=== PATIENT | female | born 1975 | race Caucasian/White ===

== ENCOUNTER 2017-09-06 01:00 | Emergency (ER) | payer MEDICAID ==
[~2017-09-06] VITALS: Ht 167.6 cm; Wt 97.0 kg
[~2017-09-06 01:00] MED LIST: LISI-604 PO
[2017-09-06] MEDS ORDERED: AMLO2.5T2 PO (01:18)
[2017-09-06] MEDS ORDERED: DULO60CA45 PO (01:19)
[2017-09-06] MEDS ORDERED: normal saline 1000ML IV soln IVB ONE (01:20)
[2017-09-06] MEDS ORDERED: ondansetron/PF 4mg/2ml inj IV ONE (01:20)
[2017-09-06] MEDS ORDERED: HYDROcodone/acetaminophen 10/325mg tab PO ONE (01:25)
[2017-09-06] MEDS: morphine 4 MG/ML inj SYRINge IV PRN ×2 (01:36→02:47)
[2017-09-06 01:53] LABS: BASOPHILS % (AUTO) 0.2 % (0-1); EOSINOPHILS # (AUTO) 0.3 X10'3 (0-0.9); EOSINOPHILS % (AUTO) 2.9 % (0-6); HEMATOCRIT 37.8 % (35.0-45.0); HEMOGLOBIN 12.2 g/dl (12.0-16.0); LYMPHOCYTES # (AUTO) 1.3 X10'3 (1.1-4.8); LYMPHOCYTES % (AUTO) 10.9 % (21-51); MEAN CORPUSCULAR HGB CONC 32.2 % (33.0-36.5); MEAN CORPUSCULAR VOLUME 74.4 FL (78-98); MEAN PLATELET VOLUME 7.8 FL (7.4-10.4); MONOCYTES # (AUTO) 0.8 X10'3 (0-0.9); NEUTROPHILS # (AUTO) 9.2 X10'3 (1.8-7.7); PLATELET COUNT 482 X10'3 (140-440); RED BLOOD COUNT 5.08 X10'6 (4.20-5.60); RED CELL DISTRIBUTION WIDTH 20.6 % (11.5-14.5); WHITE BLOOD COUNT 11.7 X10'3 (4.5-11.0)
[2017-09-06 02:08] LABS: ALANINE AMINOTRANSFERASE 14 U/L (12-78); ALBUMIN 3.8 G/DL (3.4-5.0); ALBUMIN/GLOBULIN RATIO 0.9 (1.1-1.5); ALKALINE PHOSPHATASE 83 IU/L (46-116); ANION GAP 5 (8-16); ASPARTATE AMINO TRANSFERASE 19 U/L (10-37); BILIRUBIN,TOTAL 0.4 MG/DL (0.1-1.0); BLOOD UREA NITROGEN 9 MG/DL (7-18); BUN/CREATININE RATIO 11.3 (6.6-38.0); CALCIUM 8.9 MG/DL (8.5-10.1); CHLORIDE 105 MMOL/L (99-107); GLUCOSE 138 MG/DL (70-104); LIPASE 581 U/L (73-393); POTASSIUM 3.3 MMOL/L (3.5-5.1); SODIUM 136 MMOL/L (135-145); eGFR 78 ML/MIN
[2017-09-06] MEDS ORDERED: ONDA8TAB6 PO (02:36)
[2017-09-06] MEDS ORDERED: magnesium citrate 296ml oral solution PO ONE (05:10)
[2017-09-06 05:20] VITALS: BP 113/80
[2017-09-06 05:27] LABS: CLARITY,URINE CLEAR (Clear); COLOR,URINE YELLOW (Yellow); GLUCOSE, URINE NEGATIVE (Neg); KETONES,URINE TRACE mg/dl (Neg); LEUKOCYTE ESTERASE ,URINE NEGATIVE (Neg); NITRITES, URINE NEGATIVE (Neg); OCCULT BLOOD,URINE NEGATIVE (Neg); PROTEIN,URINE TRACE mg/dl (Neg); UROBILINOGEN,URINE 0.2 E.U/dL (0.2-1.0)
[2017-09-06 05:29] LABS: URINE HCG NEGATIVE (NEG)
[2017-09-06 05:34] LABS: UA COLLECTION TYPE CLN CATCH MIDSTREAM
[2017-09-06 05:36] LABS: BACTERIA,URINE 1+ /HPF (Neg); MUCUS STRANDS MODERATE /LPF (Neg); RBC,URINE 0-2 /HPF (0-2); SQUAMOUS EPITHELIAL CELL,UR MANY /LPF (FEW); WBC,URINE 0-4 /HPF (0-4)
[2017-09-06] MEDS ORDERED: LEVO75TA PO (15:41)
[2017-09-06] MEDS ORDERED: FERR325T32 PO (15:41)
== END 2017-09-06 05:32 | disposition home or self-care (01) ==
LOC: ER 01:00
DX: R10.33 Periumbilical pain (principal); K59.00 Constipation, unspecified; R11.2 Nausea with vomiting, unspecified; I10 Essential (primary) hypertension; M79.7 Fibromyalgia; G43.909 Migraine, unspecified, not intractable, without status migrainosus; Z90.49 Acquired absence of other specified parts of digestive tract; Z79.899 Other long term (current) drug therapy
CPT/HCPCS: 36415; 74018; 76700; 76830; 76856; 80053; 81001; 81025; 83690; 85025; 96361; 96374; 96375; 96376; 99285; J2270; J2405; J7030

== ENCOUNTER 2017-09-06 11:23 | Inpatient (IN) | payer MEDICAID ==
[~2017-09-06] VITALS: Ht 167.6 cm; Wt 98.8 kg
[~2017-09-06 11:23] MED LIST changes: +AMLO2.5T2 PO; +DULO60CA45 PO; +ONDA8TAB6 PO
[2017-09-06 12:08] LABS: BASOPHILS % (AUTO) 0.2 % (0-1); EOSINOPHILS # (AUTO) 0.1 X10'3 (0-0.9); EOSINOPHILS % (AUTO) 0.8 % (0-6); HEMATOCRIT 36.8 % (35.0-45.0); LYMPHOCYTES # (AUTO) 0.7 X10'3 (1.1-4.8); LYMPHOCYTES % (AUTO) 6.2 % (21-51); MEAN CORPUSCULAR HEMOGLOBIN 24.2 PG (27.0-31.0); MEAN CORPUSCULAR HGB CONC 32.7 % (33.0-36.5); MEAN PLATELET VOLUME 7.5 FL (7.4-10.4); MONOCYTES # (AUTO) 0.8 X10'3 (0-0.9); MONOCYTES % (AUTO) 6.6 % (2-12); NEUTROPHILS # (AUTO) 10.4 X10'3 (1.8-7.7); NEUTROPHILS % (AUTO) 86.2 % (42-75); PLATELET COUNT 392 X10'3 (140-440); RED BLOOD COUNT 4.97 X10'6 (4.20-5.60); RED CELL DISTRIBUTION WIDTH 20.8 % (11.5-14.5)
[2017-09-06 12:15] LABS: PROTHROMBIN TIME 10.1 SECONDS (9.0-12.0)
[2017-09-06 12:22] LABS: ALANINE AMINOTRANSFERASE 32 U/L (12-78); ALBUMIN 3.7 G/DL (3.4-5.0); ALBUMIN/GLOBULIN RATIO 0.9 (1.1-1.5); ALKALINE PHOSPHATASE 85 IU/L (46-116); ASPARTATE AMINO TRANSFERASE 38 U/L (10-37); BILIRUBIN,TOTAL 0.5 MG/DL (0.1-1.0); BLOOD UREA NITROGEN 11 MG/DL (7-18); BUN/CREATININE RATIO 14.7 (6.6-38.0); CHLORIDE 107 MMOL/L (99-107); CREATININE 0.75 MG/DL (0.40-0.90); GLUCOSE 132 MG/DL (70-104); POTASSIUM 3.5 MMOL/L (3.5-5.1); TOTAL CARBON DIOXIDE 27.7 MMOL/L (24-32); TOTAL PROTEIN 7.9 G/DL (6.4-8.2); eGFR 84 ML/MIN
[2017-09-06] MEDS ORDERED: ondansetron/PF 4mg/2ml inj IV ONE ×2 (12:25→14:40)
[2017-09-06] MEDS ORDERED: normal saline 1000ML IV soln IVB ONE (12:25)
[2017-09-06] MEDS ORDERED: morphine 2 MG/ML inj. syringe IV ONE (12:25)
[2017-09-06 12:27] LABS: ANION GAP 7 (8-16); SODIUM 140 MMOL/L (135-145)
[2017-09-06] MEDS ORDERED: morphine 4 MG/ML inj SYRINge IV ONE ×2 (12:35→14:40)
[2017-09-06] MEDS ORDERED: iohexol 300mg/ml 100ml inj. ONE (12:45)
[2017-09-06 13:57] LABS: CLARITY,URINE CLOUDY (Clear); COLOR,URINE YELLOW (Yellow); GLUCOSE, URINE NEGATIVE (Neg); KETONES,URINE TRACE mg/dl (Neg); LEUKOCYTE ESTERASE ,URINE NEGATIVE (Neg); NITRITES, URINE NEGATIVE (Neg); OCCULT BLOOD,URINE NEGATIVE (Neg); PROTEIN,URINE TRACE mg/dl (Neg); UROBILINOGEN,URINE 0.2 E.U/dL (0.2-1.0)
[2017-09-06 14:08] LABS: UA COLLECTION TYPE CLN CATCH MIDSTREAM
[2017-09-06 14:11] LABS: MUCUS STRANDS MANY /LPF (Neg); SQUAMOUS EPITHELIAL CELL,UR MANY /LPF (FEW); TRANSITIONAL EPI CELLS,URINE FEW /HPF
[2017-09-06 14:12] LABS: BACTERIA,URINE 2+ /HPF (Neg); HYALINE CASTS 0-3 /LPF (NEGATIVE); RBC,URINE 0-2 /HPF (0-2); WBC,URINE 0-4 /HPF (0-4)
[2017-09-06 14:17] LABS: AMORPHOUS URATES 1+
[2017-09-06] MEDS ORDERED: acetaminophen 325mg tablet PO PRN (15:35)
[2017-09-06] MEDS ORDERED: magnesium hydroxide 30ml (MOM) UD suspension PO PRN (15:35)
[2017-09-06] MEDS ORDERED: PEG 3350/Na sulf,bicarb,Cl/KCl oral sol 4 liter bottle PO ONE (15:35)
[2017-09-06] MEDS ORDERED: mag hydrox/Alum hydrox/simeth 30ml oral suspension PO PRN (15:35)
[2017-09-06] MEDS ORDERED: diphenhydrAMINE 25mg capsule PO PRN (15:35)
[2017-09-06] MEDS ORDERED: metoclopramide 5 mg/ml inj IV PRN (15:35)
[2017-09-06] MEDS ORDERED: LEVO75TA PO (15:41)
[2017-09-06] MEDS ORDERED: FERR325T32 PO (15:41)
[2017-09-06] MEDS ORDERED: hydrALAZINE 20mg/ml inj. IV PRN (15:45)
[2017-09-06] MEDS: normal saline 1000ml 1,000 ML IV SCH ×2 (16:37→23:02)
[2017-09-06] MEDS: ketorolac tromethamine 15mg/ml inj. IV PRN (16:37)
[2017-09-06] MEDS: amLODIPine 5mg tablet PO SCH (16:38)
[2017-09-06] MEDS ORDERED: temazepam 15mg capsule PO PRN (21:00)
[2017-09-06] MEDS ORDERED: pantoprazole 40 MG vial IV ONE (21:50)
[2017-09-06] MEDS: ondansetron/PF 4mg/2ml inj IV PRN (21:56)
[2017-09-06 22:05] VITALS: BP 154/95
[2017-09-06 22:14] LABS: GASTRIC OCCULT BLOOD POSITIVE (Neg)
[2017-09-06] MEDS: morphine 4 MG/ML inj SYRINge IV PRN (22:32)
[2017-09-07] VITALS (20 sets, daily range): BP systolic 125–165; BP diastolic 73–98
[2017-09-07] MEDS: ketorolac tromethamine 15mg/ml inj. IV PRN ×3 (01:10→20:54)
[2017-09-07] MEDS: normal saline 1000ml 1,000 ML IV SCH (04:56)
[2017-09-07 05:17] LABS: BASOPHILS % (AUTO) 0.1 % (0-1); EOSINOPHILS % (AUTO) 0 % (0-6); HEMATOCRIT 34.2 % (35.0-45.0); HEMOGLOBIN 11.1 g/dl (12.0-16.0); LYMPHOCYTES # (AUTO) 0.8 X10'3 (1.1-4.8); LYMPHOCYTES % (AUTO) 7.2 % (21-51); MEAN CORPUSCULAR HEMOGLOBIN 24.2 PG (27.0-31.0); MEAN CORPUSCULAR HGB CONC 32.4 % (33.0-36.5); MEAN CORPUSCULAR VOLUME 74.8 FL (78-98); MEAN PLATELET VOLUME 7.8 FL (7.4-10.4); MONOCYTES # (AUTO) 0.8 X10'3 (0-0.9); MONOCYTES % (AUTO) 7.8 % (2-12); NEUTROPHILS # (AUTO) 9.2 X10'3 (1.8-7.7); NEUTROPHILS % (AUTO) 84.9 % (42-75); PLATELET COUNT 395 X10'3 (140-440); RED BLOOD COUNT 4.57 X10'6 (4.20-5.60); RED CELL DISTRIBUTION WIDTH 21.2 % (11.5-14.5); WHITE BLOOD COUNT 10.8 X10'3 (4.5-11.0)
[2017-09-07 05:57] LABS: IRON 22 UG/DL (49-151)
[2017-09-07 06:08] LABS: % IRON SATURATION 8 % (11-46); TOTAL IRON BINDING CAPACITY 270 UG/DL (259-388)
[2017-09-07 06:11] LABS: ALBUMIN 3.3 G/DL (3.4-5.0); ANION GAP 7 (8-16); BLOOD UREA NITROGEN 17 MG/DL (7-18); BUN/CREATININE RATIO 17.7 (6.6-38.0); CHLORIDE 105 MMOL/L (99-107); CREATININE 0.96 MG/DL (0.40-0.90); FERRITIN 12 NG/ML (8-252); GLUCOSE 134 MG/DL (70-104); POTASSIUM 3.7 MMOL/L (3.5-5.1); SODIUM 142 MMOL/L (135-145); eGFR 63 ML/MIN
[2017-09-07] MEDS: morphine 4 MG/ML inj SYRINge IV PRN ×3 (06:33→23:13)
[2017-09-07] MEDS: duloxetine 30mg CAPSULE.DR PO SCH (07:32)
[2017-09-07] MEDS: amLODIPine 5mg tablet PO SCH (07:32)
[2017-09-07] MEDS ORDERED: levoTHYROXINE 75mcg tablet PO SCH (08:00)
[2017-09-07] MEDS ORDERED: LIDOcaine 2% 10ml TOPICAL JELLY (Urojet) MM ONE (08:55)
[2017-09-07] MEDS: pantoprazole 40 MG vial IV SCH ×2 (11:18→20:04)
[2017-09-07] MEDS: potassium Cl 20mEq in NS 1,000 ML IV SCH ×2 (11:18→21:21)
[2017-09-07] MEDS ORDERED: diatrozoate meglu/diatrozoate sod (37% iodine) 120ML oral solution ONE ×2 (11:48→12:01)
[2017-09-07 12:04] LABS: OCCULT BLOOD STOOL POSITIVE (Neg)
[2017-09-07] MEDS ORDERED: ceFOXitin 2 GM ADDvantage bag 100 ML IV ONE (14:10)
[2017-09-07] MEDS ORDERED: ondansetron/PF 4mg/2ml inj IV PRN (14:55)
[2017-09-07] MEDS ORDERED: proCHLORperazine 10 MG/2 ml inj IV PRN (14:55)
[2017-09-07] MEDS ORDERED: meperidine/PF 25mg/ml syringe IV PRN ×3 (14:55)
[2017-09-07] MEDS ORDERED: morphine 4 MG/ML inj SYRINge IV PRN ×2 (14:55)
[2017-09-07] MEDS ORDERED: ringers solution, lacted 1,000 ML IV SCH (14:55)
[2017-09-07] MEDS ORDERED: fentaNYL /PF 50mcg/ml 5ml ampule ONE (15:03)
[2017-09-07] MEDS ORDERED: midazolam 2 mg/2 ml injection ONE (15:03)
[2017-09-07] MEDS ORDERED: sevoflurane 250ml liquid IH ONE (15:07)
[2017-09-07] MEDS ORDERED: dexamethasone sod phosphate 10mg/ml inj ONE (15:07)
[2017-09-07] MEDS ORDERED: ondansetron/PF 4mg/2ml inj ONE (16:14)
[2017-09-07] MEDS ORDERED: rocuronium 10mg/ml inj IV ONE (16:14)
[2017-09-07] MEDS ORDERED: LIDOcaine 2% (20mg/ml) 5ml vial ONE (16:14)
[2017-09-07] MEDS ORDERED: propofol inj 20 ML IV ONE (16:14)
[2017-09-07] MEDS ORDERED: neostigmine methylsulfate 1 MG/ML 10ml vial ONE (16:14)
[2017-09-07] MEDS ORDERED: glycopyrrolate 0.2mg/ml inj ONE (16:14)
[2017-09-07] MEDS ORDERED: meperidine/PF 50mg/ml syringe ONE (16:22)
[2017-09-08] MEDS: morphine 4 MG/ML inj SYRINge IV PRN ×7 (02:22→20:19)
[2017-09-08] MEDS: ondansetron/PF 4mg/2ml inj IV PRN (02:27)
[2017-09-08 04:15] VITALS: BP 156/85
[2017-09-08 05:30] LABS: BASOPHILS % (AUTO) 0.1 % (0-1); EOSINOPHILS % (AUTO) 0 % (0-6); HEMATOCRIT 30.9 % (35.0-45.0); HEMOGLOBIN 9.9 g/dl (12.0-16.0); LYMPHOCYTES # (AUTO) 0.5 X10'3 (1.1-4.8); LYMPHOCYTES % (AUTO) 8.7 % (21-51); MEAN CORPUSCULAR HEMOGLOBIN 23.9 PG (27.0-31.0); MEAN CORPUSCULAR VOLUME 74.6 FL (78-98); MONOCYTES # (AUTO) 0.5 X10'3 (0-0.9); MONOCYTES % (AUTO) 9.5 % (2-12); NEUTROPHILS # (AUTO) 4.3 X10'3 (1.8-7.7); NEUTROPHILS % (AUTO) 81.7 % (42-75); PLATELET COUNT 310 X10'3 (140-440); RED BLOOD COUNT 4.14 X10'6 (4.20-5.60); RED CELL DISTRIBUTION WIDTH 21.8 % (11.5-14.5); WHITE BLOOD COUNT 5.2 X10'3 (4.5-11.0)
[2017-09-08 05:58] LABS: ALBUMIN 2.7 G/DL (3.4-5.0); ANION GAP 7 (8-16); BLOOD UREA NITROGEN 13 MG/DL (7-18); BUN/CREATININE RATIO 16.9 (6.6-38.0); CALCIUM 7.6 MG/DL (8.5-10.1); CHLORIDE 106 MMOL/L (99-107); CREATININE 0.77 MG/DL (0.40-0.90); GLUCOSE 116 MG/DL (70-104); POTASSIUM 3.7 MMOL/L (3.5-5.1); SODIUM 143 MMOL/L (135-145); TOTAL CARBON DIOXIDE 29.7 MMOL/L (24-32); eGFR 82 ML/MIN
[2017-09-08 07:00] VITALS: BP 109/67
[2017-09-08] MEDS: ketorolac tromethamine 15mg/ml inj. IV PRN ×3 (07:30→21:29)
[2017-09-08] MEDS: pantoprazole 40 MG vial IV SCH ×2 (07:30→21:35)
[2017-09-08] MEDS ORDERED: levoTHYROXINE sod inj. 100mcg/5 ml vial IV SCH (08:00)
[2017-09-08] MEDS: amLODIPine 5mg tablet PO SCH (08:00)
[2017-09-08] MEDS: duloxetine 30mg CAPSULE.DR PO SCH (08:00)
[2017-09-08] MEDS: potassium Cl 20mEq in NS 1,000 ML IV SCH ×2 (08:31→17:18)
[2017-09-08 12:00] VITALS: BP 118/62
[2017-09-08 19:00] VITALS: BP 128/78
[2017-09-08] MEDS: acetaminophen 325mg tablet PO PRN (21:17)
[2017-09-08] MEDS ORDERED: amLODIPine 5mg tablet PO ONE (21:30)
[2017-09-08] MEDS ORDERED: duloxetine 30mg CAPSULE.DR PO ONE (21:30)
[2017-09-08] MEDS: enoxaparin 40mg/0.4ml syringe SUBCUT SCH (21:35)
[2017-09-09] VITALS: BP 134/86
[2017-09-09] MEDS: potassium Cl 20mEq in NS 1,000 ML IV SCH (03:29)
[2017-09-09] MEDS: morphine 4 MG/ML inj SYRINge IV PRN ×4 (03:56→23:30)
[2017-09-09 05:41] LABS: BASOPHILS % (AUTO) 0.1 % (0-1); EOSINOPHILS # (AUTO) 0.3 X10'3 (0-0.9); EOSINOPHILS % (AUTO) 6.3 % (0-6); HEMATOCRIT 25.9 % (35.0-45.0); HEMOGLOBIN 8.5 g/dl (12.0-16.0); LYMPHOCYTES # (AUTO) 0.5 X10'3 (1.1-4.8); LYMPHOCYTES % (AUTO) 11.3 % (21-51); MEAN CORPUSCULAR HEMOGLOBIN 24.1 PG (27.0-31.0); MEAN CORPUSCULAR HGB CONC 32.9 % (33.0-36.5); MEAN CORPUSCULAR VOLUME 73.2 FL (78-98); MEAN PLATELET VOLUME 7.8 FL (7.4-10.4); MONOCYTES # (AUTO) 0.6 X10'3 (0-0.9); MONOCYTES % (AUTO) 13.9 % (2-12); NEUTROPHILS # (AUTO) 3.1 X10'3 (1.8-7.7); NEUTROPHILS % (AUTO) 68.4 % (42-75); PLATELET COUNT 239 X10'3 (140-440); RED BLOOD COUNT 3.54 X10'6 (4.20-5.60); RED CELL DISTRIBUTION WIDTH 21.2 % (11.5-14.5); WHITE BLOOD COUNT 4.6 X10'3 (4.5-11.0)
[2017-09-09] MEDS: ketorolac tromethamine 15mg/ml inj. IV PRN ×3 (05:43→20:42)
[2017-09-09 05:57] LABS: ALBUMIN 2.4 G/DL (3.4-5.0); ANION GAP 7 (8-16); BLOOD UREA NITROGEN 13 MG/DL (7-18); BUN/CREATININE RATIO 16.7 (6.6-38.0); CALCIUM 7.3 MG/DL (8.5-10.1); CHLORIDE 105 MMOL/L (99-107); CREATININE 0.78 MG/DL (0.40-0.90); GLUCOSE 100 MG/DL (70-104); POTASSIUM 3.7 MMOL/L (3.5-5.1); SODIUM 138 MMOL/L (135-145); TOTAL CARBON DIOXIDE 26.4 MMOL/L (24-32); eGFR 81 ML/MIN
[2017-09-09 07:00] VITALS: BP 134/76
[2017-09-09] MEDS: levoTHYROXINE 100mcg tablet PO SCH (09:56)
[2017-09-09] MEDS: pantoprazole 40 MG vial IV SCH ×2 (09:56→20:33)
[2017-09-09] MEDS: enoxaparin 40mg/0.4ml syringe SUBCUT SCH (09:56)
[2017-09-09 11:00] VITALS: BP 129/74
[2017-09-09] MEDS: ondansetron/PF 4mg/2ml inj IV PRN (12:50)
[2017-09-09] MEDS: normal saline 1000ml 1,000 ML IV SCH (18:06)
[2017-09-09 18:30] VITALS: BP 149/91
[2017-09-09] MEDS: duloxetine 30mg CAPSULE.DR PO SCH (20:33)
[2017-09-09] MEDS: amLODIPine 5mg tablet PO SCH (20:33)
[2017-09-10] VITALS: BP 143/80
[2017-09-10] MEDS: normal saline 1000ml 1,000 ML IV SCH (00:24)
[2017-09-10 05:30] LABS: BASOPHILS % (AUTO) 0 % (0-1); EOSINOPHILS # (AUTO) 0.2 X10'3 (0-0.9); EOSINOPHILS % (AUTO) 4.5 % (0-6); HEMATOCRIT 27.5 % (35.0-45.0); HEMOGLOBIN 8.7 g/dl (12.0-16.0); LYMPHOCYTES # (AUTO) 0.5 X10'3 (1.1-4.8); LYMPHOCYTES % (AUTO) 9.8 % (21-51); MEAN CORPUSCULAR HEMOGLOBIN 23.3 PG (27.0-31.0); MEAN CORPUSCULAR HGB CONC 31.5 % (33.0-36.5); MEAN CORPUSCULAR VOLUME 73.8 FL (78-98); MEAN PLATELET VOLUME 8.1 FL (7.4-10.4); MONOCYTES % (AUTO) 18.4 % (2-12); NEUTROPHILS # (AUTO) 3.7 X10'3 (1.8-7.7); NEUTROPHILS % (AUTO) 67.3 % (42-75); PLATELET COUNT 247 X10'3 (140-440); RED BLOOD COUNT 3.73 X10'6 (4.20-5.60); RED CELL DISTRIBUTION WIDTH 20.1 % (11.5-14.5); WHITE BLOOD COUNT 5.4 X10'3 (4.5-11.0)
[2017-09-10 05:55] LABS: ALBUMIN 2.3 G/DL (3.4-5.0); ANION GAP 7 (8-16); BLOOD UREA NITROGEN 9 MG/DL (7-18); BUN/CREATININE RATIO 9.9 (6.6-38.0); CALCIUM 8.4 MG/DL (8.5-10.1); CHLORIDE 104 MMOL/L (99-107); CREATININE 0.91 MG/DL (0.40-0.90); GLUCOSE 101 MG/DL (70-104); POTASSIUM 3.3 MMOL/L (3.5-5.1); SODIUM 138 MMOL/L (135-145); TOTAL CARBON DIOXIDE 27.4 MMOL/L (24-32); eGFR 67 ML/MIN
[2017-09-10] MEDS: levoTHYROXINE 100mcg tablet PO SCH (06:42)
[2017-09-10] MEDS: acetaminophen 325mg tablet PO PRN (06:42)
[2017-09-10 08:07] VITALS: BP 133/56
[2017-09-10] MEDS: enoxaparin 40mg/0.4ml syringe SUBCUT SCH (08:49)
[2017-09-10] MEDS: pantoprazole 40 MG vial IV SCH ×2 (08:49→19:53)
[2017-09-10] MEDS: metroNIDAZOLE-Flagyl 500mg/NS 100 ML IV SCH ×3 (08:58→23:36)
[2017-09-10] MEDS: morphine 4 MG/ML inj SYRINge IV PRN ×3 (09:31→23:37)
[2017-09-10] MEDS: levoFLOXACIN-Levaquin 500mg/D5 100 ML IV SCH (10:23)
[2017-09-10 11:00] VITALS: BP_SYST 118; BP_SYST 124; BP_DIAS 63; BP_DIAS 78
[2017-09-10] MEDS: ondansetron/PF 4mg/2ml inj IV PRN ×2 (11:39→20:01)
[2017-09-10 12:19] LABS: CLARITY,URINE CLEAR (Clear); COLOR,URINE YELLOW (Yellow); GLUCOSE, URINE NEGATIVE (Neg); KETONES,URINE NEGATIVE (Neg); LEUKOCYTE ESTERASE ,URINE NEGATIVE (Neg); NITRITES, URINE NEGATIVE (Neg); OCCULT BLOOD,URINE SMALL (Neg); PROTEIN,URINE NEGATIVE (Neg)
[2017-09-10 12:22] LABS: UA COLLECTION TYPE NON-SPECIFIED
[2017-09-10 12:27] LABS: BACTERIA,URINE 3+ /HPF (Neg); RBC,URINE 0-2 /HPF (0-2); SQUAMOUS EPITHELIAL CELL,UR MANY /LPF (FEW); WBC,URINE 0-4 /HPF (0-4)
[2017-09-10] MEDS ORDERED: potassium Cl 40MEQ/NS 500ml 500 ML IV PRN ×2 (12:50)
[2017-09-10] MEDS ORDERED: magnesium Cl slow-release 64mg tablet PO PRN (12:50)
[2017-09-10] MEDS ORDERED: magnesium/D5W IVPB 100 ML IV PRN (12:50)
[2017-09-10] MEDS ORDERED: potassium Cl 20 mEq SR tablet PO PRN (12:50)
[2017-09-10] MEDS ORDERED: magnesium 4gm in 100ml NS 100 ML IV PRN (12:50)
[2017-09-10 19:00] VITALS: BP 131/78
[2017-09-10] MEDS: lactobacillus rhamnosus 10,000 MMU CELLS/CAPSULE PO SCH (19:55)
[2017-09-10] MEDS: potassium Cl 20 mEq SR tablet PO PRN (19:55)
[2017-09-10] MEDS: amLODIPine 5mg tablet PO SCH (20:47)
[2017-09-10] MEDS: duloxetine 30mg CAPSULE.DR PO SCH (20:47)
[2017-09-11] VITALS: BP 115/51
[2017-09-11] MEDS: potassium Cl 20 mEq SR tablet PO PRN ×2 (00:21→12:39)
[2017-09-11 04:00] VITALS: BP 128/71
[2017-09-11 05:25] LABS: BASOPHILS % (AUTO) 0.3 % (0-1); EOSINOPHILS # (AUTO) 0.4 X10'3 (0-0.9); EOSINOPHILS % (AUTO) 5.4 % (0-6); HEMATOCRIT 26.3 % (35.0-45.0); HEMOGLOBIN 8.5 g/dl (12.0-16.0); LYMPHOCYTES # (AUTO) 0.8 X10'3 (1.1-4.8); MEAN CORPUSCULAR HGB CONC 32.3 % (33.0-36.5); MEAN CORPUSCULAR VOLUME 74.3 FL (78-98); MEAN PLATELET VOLUME 7.5 FL (7.4-10.4); MONOCYTES # (AUTO) 0.9 X10'3 (0-0.9); MONOCYTES % (AUTO) 11.8 % (2-12); NEUTROPHILS # (AUTO) 5.2 X10'3 (1.8-7.7); NEUTROPHILS % (AUTO) 71.5 % (42-75); PLATELET COUNT 245 X10'3 (140-440); RED BLOOD COUNT 3.54 X10'6 (4.20-5.60); RED CELL DISTRIBUTION WIDTH 20.9 % (11.5-14.5); WHITE BLOOD COUNT 7.2 X10'3 (4.5-11.0)
[2017-09-11 05:35] LABS: ALBUMIN 2.2 G/DL (3.4-5.0); ANION GAP 8 (8-16); BLOOD UREA NITROGEN 6 MG/DL (7-18); BUN/CREATININE RATIO 7.2 (6.6-38.0); CALCIUM 8.3 MG/DL (8.5-10.1); CHLORIDE 104 MMOL/L (99-107); CREATININE 0.83 MG/DL (0.40-0.90); GLUCOSE 121 MG/DL (70-104); MAGNESIUM 1.5 MG/DL (1.5-2.4); POTASSIUM 3.1 MMOL/L (3.5-5.1); SODIUM 141 MMOL/L (135-145); TOTAL CARBON DIOXIDE 28.8 MMOL/L (24-32); eGFR 75 ML/MIN
[2017-09-11 07:00] VITALS: BP 111/56
[2017-09-11] MEDS: levoTHYROXINE 100mcg tablet PO SCH (09:09)
[2017-09-11] MEDS: pantoprazole 40 MG vial IV SCH (09:09)
[2017-09-11] MEDS: levoFLOXACIN-Levaquin 500mg/D5 100 ML IV SCH (09:09)
[2017-09-11] MEDS: enoxaparin 40mg/0.4ml syringe SUBCUT SCH (09:10)
[2017-09-11] MEDS: lactobacillus rhamnosus 10,000 MMU CELLS/CAPSULE PO SCH (09:10)
[2017-09-11 11:00] VITALS: BP 151/89
[2017-09-11] MEDS: metroNIDAZOLE-Flagyl 500mg/NS 100 ML IV SCH (11:42)
[2017-09-11] MEDS ORDERED: HYDROcodone/acetaminophen 10/325mg tab PO PRN (15:40)
[2017-09-11] MEDS ORDERED: HYDR-565 PO (15:41)
[2017-09-11] MEDS ORDERED: metroNIDAZOLE 500mg tablet PO SCH (16:00)
[2017-09-11] MEDS ORDERED: pantoprazole 40mg Tablet.DR PO SCH (20:00)
[2017-09-12] MEDS ORDERED: levoFLOXACIN 500mg tablet PO SCH (11:00)
== END 2017-09-11 18:00 | disposition home health service (06) | DRG 221 ==
LOC: ER 11:24 → ED HOLD 15:34 → SUR 3N 22:24 → PACU 09-07 14:45 → SUR 3N 09-07 17:54
PROVIDERS: ADMIT Family Medicine; ATTEND Surgery
PROC: BW211ZZ Computerized Tomography (CT Scan) of Abdomen and Pelvis using Low Osmolar Contrast (ICD-10-PCS; 2017-09-06)
PROC: 0DBL0ZZ Excision of Transverse Colon, Open Approach (ICD-10-PCS; 2017-09-07)
PROC: 0DNW0ZZ Release Peritoneum, Open Approach (ICD-10-PCS; 2017-09-07)
PROC: 07BB0ZX Excision of Mesenteric Lymphatic, Open Approach, Diagnostic (ICD-10-PCS; 2017-09-07)
PROC: 0DBK0ZZ Excision of Ascending Colon, Open Approach (ICD-10-PCS; principal; 2017-09-07 15:07)
DX: C18.9 Malignant neoplasm of colon, unspecified (principal); K56.600 Partial intestinal obstruction, unspecified as to cause; I10 Essential (primary) hypertension; F32.9 Major depressive disorder, single episode, unspecified; E03.9 Hypothyroidism, unspecified; G43.909 Migraine, unspecified, not intractable, without status migrainosus; D50.9 Iron deficiency anemia, unspecified; M79.7 Fibromyalgia; N73.6 Female pelvic peritoneal adhesions (postinfective); Z53.31 Laparoscopic surgical procedure converted to open procedure; Z82.49 Family history of ischemic heart disease and other diseases of the circulatory system; Z90.710 Acquired absence of both cervix and uterus; Z79.899 Other long term (current) drug therapy
CPT/HCPCS: 36415; 71045; 74177; 74270; 80048; 80053; 81001; 82271; 82272; 82607; 82728; 82746; 83540; 83550; 83605; 83735; 84145; 84443; 85025; 85610; 87040; 87070; 93005; 96361; 96374; 96375; 96376; 99285; A4649; A6253; A6446; A6449; A7000; C1758; C9113; J0694; J1100; J1650; J1885; J1956; J2001; J2175; J2250; J2270; J2405; J2704; J2710; J2765; J3010; J3480; J3490; J7030; J7120; Q9963; Q9967

== ENCOUNTER 2017-09-27 17:33 | Emergency (ER) | payer MEDICAID ==
[~2017-09-27] VITALS: Ht 167.6 cm; Wt 95.5 kg
[~2017-09-27 17:33] MED LIST changes: +FERR325T32 PO; +HYDR-565 PO; +LEVO75TA PO; -LISI-604 PO; -ONDA8TAB6 PO
[2017-09-27 18:22] VITALS: BP 145/93
== END 2017-09-27 18:37 | disposition home or self-care (01) ==
LOC: ER 17:34
DX: T81.30XA Disruption of wound, unspecified, initial encounter (principal); I10 Essential (primary) hypertension; G43.909 Migraine, unspecified, not intractable, without status migrainosus; Z90.49 Acquired absence of other specified parts of digestive tract; Z90.710 Acquired absence of both cervix and uterus; Z79.899 Other long term (current) drug therapy
CPT/HCPCS: 99281

== ENCOUNTER 2017-10-07 06:41 | Day surgery (SDC) | payer MEDICAID ==
[2017-10-07] VITALS (9 sets, daily range): BP systolic 110–132; BP diastolic 71–89
[~2017-10-07] VITALS: Ht 165.1 cm; Wt 96.3 kg
[2017-10-07] MEDS ORDERED: CETI-102 PO (07:17)
[2017-10-07] MEDS ORDERED: AMLO10TA4 PO (07:17)
[2017-10-07] MEDS ORDERED: HYDR-565 PO (07:21)
[2017-10-07] MEDS ORDERED: LIDOcaine 1%/PF 5ML 10 MG/ML VIAL ONE (08:34)
[2017-10-07] MEDS ORDERED: normal saline 1000ml 1,000 ML IV SCH (08:35)
[2017-10-07] MEDS ORDERED: fentaNYL/PF 50MCG/1 ML 2ML syringe ONE ×2 (08:36→08:50)
[2017-10-07] MEDS ORDERED: midazolam 2 mg/2 ml injection ONE ×2 (08:36→08:50)
[2017-10-07] MEDS ORDERED: heparin sodium, porcine/PF 100unit/ml 5ML syringe ONE (08:36)
[2017-10-07] MEDS ORDERED: heparin sodium, porcine/PF 100unit/ml 5ML syringe ICATH ONE (08:40)
[2017-10-07] MEDS ORDERED: fentaNYL/PF 50MCG/1 ML 2ML syringe IV PRN (08:40)
[2017-10-07] MEDS ORDERED: LIDOcaine 1%/PF 5ML 10 MG/ML VIAL SQ ONE (08:40)
[2017-10-07] MEDS ORDERED: midazolam 2 mg/2 ml injection IV PRN (08:40)
[2017-10-07 08:43] LABS: BASOPHILS % (AUTO) 0.6 % (0-1); EOSINOPHILS # (AUTO) 0.7 X10'3 (0-0.9); EOSINOPHILS % (AUTO) 11.9 % (0-6); HEMATOCRIT 30.6 % (35.0-45.0); HEMOGLOBIN 9.9 g/dl (12.0-16.0); LYMPHOCYTES # (AUTO) 1.2 X10'3 (1.1-4.8); LYMPHOCYTES % (AUTO) 20.8 % (21-51); MEAN CORPUSCULAR HEMOGLOBIN 23.5 PG (27.0-31.0); MEAN CORPUSCULAR HGB CONC 32.3 % (33.0-36.5); MEAN CORPUSCULAR VOLUME 72.6 FL (78-98); MEAN PLATELET VOLUME 8.1 FL (7.4-10.4); MONOCYTES # (AUTO) 0.6 X10'3 (0-0.9); MONOCYTES % (AUTO) 10.8 % (2-12); NEUTROPHILS # (AUTO) 3.2 X10'3 (1.8-7.7); NEUTROPHILS % (AUTO) 55.9 % (42-75); PLATELET COUNT 277 X10'3 (140-440); RED BLOOD COUNT 4.22 X10'6 (4.20-5.60); WHITE BLOOD COUNT 5.7 X10'3 (4.5-11.0)
[2017-10-07] MEDS ORDERED: HYDROcodone/acetaminophen 10/325mg tab PO ONE (10:45)
== END 2017-10-07 13:45 | disposition home or self-care (01) ==
LOC: SSTAY O 06:41
PROVIDERS: ATTEND Radiology Diagnostic Radiology
DX: C18.3 Malignant neoplasm of hepatic flexure (principal); I10 Essential (primary) hypertension; G43.909 Migraine, unspecified, not intractable, without status migrainosus; M79.7 Fibromyalgia; F32.9 Major depressive disorder, single episode, unspecified; E03.9 Hypothyroidism, unspecified; Z79.891 Long term (current) use of opiate analgesic; Z90.49 Acquired absence of other specified parts of digestive tract; Z90.710 Acquired absence of both cervix and uterus; Z98.890 Other specified postprocedural states; Z79.899 Other long term (current) drug therapy
CPT/HCPCS: 36415; 36561; 76937; 77001; 85025; 99152; 99153; A6219; C1788; C1894; J1642; J2001; J2250; J3010; J7030; A4620